=== PATIENT | female | born 1965 | race Asian ===

== ENCOUNTER 2024-08-07 01:53 | Emergency (ER) | payer OTHER, SELFPAY ==
[2024-08-07] VITALS (13 sets, daily range): BP systolic 99–199; BP diastolic 55–103; PULSE 52–71; RESP 16–23; TEMP 36.2; O2SAT 96–99; BMI 294.8
--- NOTE | 2024-08-07 01:54 | EKG_ITS ---
[address] [address] Test Date: 2024-08-07 Pat Name: Dina Pak Department: Located Within [facility] Room: Gender: Female [employer] Field Agent: : 1965 Requested By: Order Number: [id number] Reading MD: Gómez Pool MD Measurements Intervals [place] Rate: 62 P: 48 [place]: 192 QRS: 4 QRSD: 78 T: 49 QT: 454 QTc: 460 Interpretive Statements Normal sinus rhythm Electronically Signed On 08-07-2024 7:31:33 PST by Gómez Pool MD
--- NOTE | 2024-08-07 02:01 | ED.CHESTPAIN ---
HPI - Chest Pain General Chief Complaint: Chest Pain Stated Complaint: chest pain Time Seen by Provider: 08/07/24 01:54 History of Present Illness HPI narrative: 59-year-old female with no reported past medical history presents by private vehicle from home for 1 hour of central substernal chest pain. Patient states that the pain woke her from sleep around 1:00 a.m. and lasted for about 2-3 minutes, resolving without any medications. Patient states that this happened in September of this year while [place] Her has been took her to [place], where she underwent a cardiac workup. Patient states that she was told that she may have an enlarged aorta, but due to difficulties with referrals she was not been able to establish an appointment with a shipping services sales representative until August 25. She has not had any further episodes of chest pain until tonight. Patient states that she was no known family history of coronary disease, however her brother has a history of congenital heart disease requiring several open heart surgeries. Related Data Allergies Allergy/AdvReac Type Severity Reaction Status Date / Time No Known Drug Allergies Allergy Verified 08/07/24 02:00 Patient History Social History Smoking Status: Never smoker Exam Initial Vital Signs Initial Vital Signs: Vital Signs Pulse Rate 61 08/07/24 01:59 Pulse Oximetry 99 08/07/24 01:59 Const: Awake, alert, no acute distress, nontoxic appearing Cardiac: regular rate, regular rhythm RESP: unlabored, clear bilaterally, no wheezing Skin: Warm, Dry, intact, no rashes Neuro: AO x3, CN II-XII grossly intact, moves all extremities Course Orders Ordered: ED Orders 08/07/24 01:54 EKG-12 Lead Stat 08/07/24 02:07 Chest [XR chest 1V] Stat 08/07/24 02:14 BNP [NT-proBNP (BNP-Adult 18+)] Stat CBC Auto Diff [Complete Blood Count AUTO DIFF] Stat CMP [Comprehensive Metabolic Panel] Stat PT [Prothrombin Time INR] Stat Troponin & CK Cardiac Panel Stat 08/07/24 04:02 Trop I [Troponin I] Stat Nitroglycerin (Nitroglycerin 0.4 Mg Sl Tab) 0.4 mg SL [id number] PRN PRN Reason: Chest Pain Last Admin: 08/07/24 02:21 Dose: 0.4 mg Documented By: LS Discontinued Medications Aspirin (Aspirin 81 Mg Chew Tab) 324 mg PO NOW ONE Stop: 08/07/24 02:07 Last Admin: 08/07/24 02:15 Dose: 324 mg Documented By: HNG Vital Signs Vital signs: Vital Signs - 8 hr 08/07/24 01:59 08/07/24 02:00 08/07/24 02:01 Temperature 97.2 F L Pulse Rate 61 60 64 Respiratory Rate 16 Blood Pressure 146/103 H Pulse Oximetry 99 98 98 Oxygen Delivery Method Room Air 08/07/24 02:02 08/07/24 02:02 08/07/24 02:18 Temperature Pulse Rate 57 L 58 L Respiratory Rate 20 20 Blood Pressure 199/83 H Pulse Oximetry 98 98 Oxygen Delivery Method Room Air Room Air 08/07/24 02:19 08/07/24 02:19 08/07/24 02:29 Temperature Pulse Rate 56 L 71 Respiratory Rate 22 20 Blood Pressure 180/77 H Pulse Oximetry 98 96 Oxygen Delivery Method 08/07/24 02:30 08/07/24 02:30 08/07/24 03:00 Temperature Pulse Rate 69 Respiratory Rate 18 Blood Pressure 113/68 118/67 Pulse Oximetry 96 Oxygen Delivery Method 08/07/24 03:00 08/07/24 03:30 08/07/24 03:30 Temperature Pulse Rate 57 L 54 L Respiratory Rate 23 17 Blood Pressure 105/58 L Pulse Oximetry 98 98 Oxygen Delivery Method Room Air 08/07/24 04:00 08/07/24 04:00 Temperature Pulse Rate 55 L Respiratory Rate 17 Blood Pressure 115/61 Pulse Oximetry 98 Oxygen Delivery Method MDM - Chest Pain Differential Diagnosis Differential diagnosis: Likely atypical chest pain, costochondritis and chest pain Lab Data 08/07/24 02:14 08/07/24 02:14 Labs: Lab Results 08/07/24 08/07/24 Range/Units 02:14 04:02 WBC 7.9 (4.5-11.0) X10^3/uL RBC 5.86 H (4.0-5.2) X10^6/uL Hgb 13.0 (12.0-16.0) g/dL Hct 40.4 (36-46) % MCV 68.9 L (80-100) fL MCH 22.1 L (26-34) PG MCHC 32.1 (30-36) % RDW 14.4 (11.6-14.8) % Plt Count 242 (150-400) X10^3/uL Neut % (Auto) 44.9 L (50-75) % Lymph % (Auto) 41.6 H (25-40) % [place] % (Auto) 9.1 (3-14) % Eos % (Auto) 3.7 (2-4) % Baso % (Auto) 0.7 (0-2) % Neut # (Auto) 3500 (3156-2227) /uL Lymph # (Auto) 3300 (2099-6991) /uL [place] # (Auto) 700 (0-900) /uL Eos # (Auto) 300 (0-450) /uL Baso # (Auto) 100 (0-100) /uL RBC Morphology See below Microcytosis 2+ H Stomatocytes 1+ H PT 11.0 (9.4-12.5) SECONDS INR 1.0 (0.9-1.3) Sodium 136 L (137-145) mmol/L Potassium 3.7 (3.4-5.1) mmol/L Chloride 104 (98-107) mmol/L Carbon Dioxide 25 (22-32) mmol/L BUN 15 (7-17) mg/dL Creatinine 0.53 (0.52-1.04) mg/dL Estimated GFR > 60 (>60) mL/min BUN/Creatinine Ratio 28.3 H (6-22) Glucose 118 H (70-100) mg/dL Calcium 9.2 (8.4-10.2) mg/dL Total Bilirubin 0.4 (0.2-1.3) mg/dL AST 39 H (14-36) IU/L ALT 36 H (<35) IU/L Alkaline Phosphatase 89 (38-126) U/L Total Creatine Kinase 150 H (30-135) U/L Troponin I 0.012 < 0.012 (0.01-0.034) ng/mL NT-Pro-B Natriuret Pep 44 (<125) pg/mL Total Protein 7.7 (6.3-8.2) g/dL Albumin 4.2 (3.5-5.0) g/dL Globulin 3.5 (1.7-4.1) g/dL Albumin/Globulin Ratio 1.2 (1.0-2.8) Imaging Data Chest x-ray: Radiologist's Impression: Preliminary impression: No acute cardiopulmonary process ECG Data Interpretation: Normal sinus rhythm at 62 beats per minute. Normal WI. No ST T wave changes, no STEMI MDM Narrative Medical decision making narrative: Well-appearing patient with brief episode of central chest pain. States that pain is now nearly completely gone but may have a slight burning sensation in the center of her chest. No change with nitroglycerin administered in the emergency department. Cardiac workup initiated, we will attempt to get records from from patient's previous visit. Records from Medicine reviewed. Patient appears to have possible atrial enlargement seen on EKG, not aortic enlargement. Due to patient's family history of congenital heart disease a CTA chest, abdomen, and pelvis was ordered that showed an incidental thyroid nodule, but no evidence of aortic dissection or cardiac enlargement. Patient had 2 unremarkable troponins and was subsequently discharged home. Patient troponin negative x2 here. On reassessment she was sleeping in ED bed, has had no recurrence of pain since arrival to the emergency department. Low suspicion for ACS at this time. Patient already has upcoming cardiology appointment in just over 2 weeks. Patient and has been counseled on all lab and imaging findings. She was advised to return to the emergency department for any new or worsening symptoms. Otherwise encouraged to keep her cardiology appointment as scheduled. Heart score 2 based on age/HTN on arrival Discharge Plan Departure Patient Disposition: Home Clinical Impression: Chest pain Instructions: DI for Chest Pain Activity Restrictions/Additional Instructions: Your EKG, blood work, and chest x-ray today were reassuring this is not an ongoing heart attack. I do not know the cause of your chest pain at this time. Make sure that you keep your appointment with Cardiology as scheduled. If anything changes in your symptoms or you notice recurrence of chest pain please come back to the emergency department for repeat evaluation. Stand Alone Forms: Patient Portal/API/Survey, Work Release Note
--- NOTE | 2024-08-07 02:07 | DI.RAD.S_ITS ---
PROCEDURE: XR CHEST 1V INDICATIONS: chest pain TECHNIQUE: One view of the chest was acquired. COMPARISON: None. FINDINGS: Surgical changes and devices: None. Lungs and pleura: Possible mid right lung calcified granuloma. No dense consolidation or pleural effusion. Mediastinum: Normal heart size Bones and chest wall: Degenerative changes IMPRESSION: No acute radiographic abnormality on single view study. Possible nodule in the right mid lung is probably a granuloma. No significant discrepancy from the prelim report Dictated by: Ashish Vázquez M.D. on 08/07/2024 at 7:46 Approved by: Ashish Vázquez M.D. on 08/07/2024 at 7:48
[2024-08-07] MEDS: ASPIRIN 81 MG CHEW TAB 324 MG PO (02:15)
[2024-08-07] MEDS: NITROGLYCERIN 0.4 MG SL TAB SL (02:21)
[2024-08-07 02:26] LABS: Add Manual Diff / Slide Review NO; Basophils Absolute Auto 100 /uL (0-100); Basophils Percent Auto 0.7 % (0-2); Eosinophils Absolute Auto 300 /uL (0-450); Eosinophils Percent Auto 3.7 % (2-4); Hematocrit 40.4 % (36-46); Lymphocytes Absolute Auto 3300 /uL (1100-4500); Lymphocytes Percent Auto 41.6 % (25-40); Mean Corpuscular HGB Conc 32.1 % (30-36); Mean Corpuscular Hemoglobin 22.1 PG (26-34); Mean Corpuscular Volume 68.9 fL (80-100); Monocytes Absolute Auto 700 /uL (0-900); Monocytes Percent Auto 9.1 % (3-14); Neutrophils Absolute Auto 3500 /uL (1500-7000); Neutrophils Percent Auto 44.9 % (50-75); Platelet Count 242 X10^3/uL (150-400); Red Blood Cell Count 5.86 X10^6/uL (4.0-5.2); Red Cell Distribution Width 14.4 % (11.6-14.8); White Blood Cell Count 7.9 X10^3/uL (4.5-11.0)
[2024-08-07 02:36] LABS: Alanine Aminotransferase 36 IU/L (<35); Albumin 4.2 g/dL (3.5-5.0); Albumin Globulin Ratio 1.2 (1.0-2.8); Alkaline Phosphatase 89 U/L (38-126); Aspartate Aminotransferase 39 IU/L (14-36); BUN Creatinine Ratio 28.3 (6-22); Bilirubin Total 0.4 mg/dL (0.2-1.3); Blood Urea Nitrogen 15 mg/dL (7-17); Calcium 9.2 mg/dL (8.4-10.2); Carbon Dioxide 25 mmol/L (22-32); Chloride 104 mmol/L (98-107); Creatine Kinase 150 U/L (30-135); Estimated Glomerular Filt Rate > 60 mL/min (>60); Globulin 3.5 g/dL (1.7-4.1); Glucose 118 mg/dL (70-100); HEMOLYSIS < 15 (0-50); Potassium 3.7 mmol/L (3.4-5.1); Sodium 136 mmol/L (137-145); Total Protein 7.7 g/dL (6.3-8.2)
[2024-08-07 02:43] LABS: Microcytosis 2+; Stomatocytes 1+
[2024-08-07 02:48] LABS: NT-proBNP (BNP-Adult 18+) 44 pg/mL (<125); Troponin I 0.012 ng/mL (0.01-0.034)
--- NOTE | 2024-08-07 04:05 | PC.NURSE ---
Repeat troponin drawn from existing IV line without difficulty. Per Dr. Hector parekh for pt to take po fluids. Water provided as requested. Pt remains connected to cardiac, resp, pulse ox, and blood pressure monitors with alarms on and audible, VSS. XCall light within reach. remains at bedside.
[2024-08-07 04:31] LABS: Troponin I < 0.012 ng/mL (0.01-0.034)
--- NOTE | 2024-08-07 05:20 | PC.NURSE ---
Pt ambulatory to restroom without difficulty or assistance
== END 2024-08-07 05:31 | disposition home or self-care (01) ==
PROVIDERS: Emergency Provider Emergency Medicine
DX: R07.9 Chest pain, unspecified (principal)
CPT/HCPCS: 36415; 71045; 80053; 82550; 83880; 84484; 85025; 85610; 93005; 99283; 99284

== ENCOUNTER → 2024-08-25 10:12 | Outpatient (CLI) | payer OTHER, SELFPAY ==
--- NOTE | 2024-08-25 10:14 | DI.ECHO.S_ITS ---
[facility] : : [address] : : [place] : : [id number] : : Phone: [phone] Echocardiogram Report + + :Name: GONZÁLEZ MILLAN Study Date: 08/25/2024 Height: 60 in : :[facility] ReadingLocation: Weight: 155 lb : : Gender: Female BSA: 1.7 m2 : :: 1965 Age: 59 yrs BP: 157/82 mmHg: :Reason For Study: CARDIOMEGALY : :Ordering Physician: BRITANY MCLAUGHLIN Performed By: Nilsa So : :Referring: BRITANY MCLAUGHLIN : + + Interpretation Summary 1. The left ventricular contractility is normal. Estimated ejection fraction is greater than 60% with no segmental wall motion abnormalities. No LVH. Unable to comment on diastolic function. 2. The right ventricle was not well-visualized. In limited views, the contractility appears to be grossly normal. 3. All cardiac chambers appear to be grossly normal in size. 4. No significant valvular abnormalities. 5. No obvious intracardiac shunts. 6. No obvious intracardiac masses nor thrombi. 7. No hemodynamically significant pericardial effusion. 8. Low right-sided filling pressures. Conclusion: Normal biventricular systolic function with no significant valvular abnormalities. Procedure: A two-dimensional transthoracic echocardiogram with color flow and Doppler was performed. The study quality was technically adequate. There is no prior echocardiogram noted for this patient. The patient was in sinus bradycardia with heart rates between 47-58 bpm during the exam. Left Ventricle: The left ventricle is normal in size and wall thickness. The ejection fraction is estimated to be 60-65%. Right Ventricle: The right ventricle is grossly normal size. The right ventricular systolic function is normal. Atria: The left atrial size is normal. Right atrial size is normal. There is no Doppler evidence for an interatrial shunt. Mitral Valve: The mitral valve leaflets appear mildly thickened, but open well. There is trace mitral regurgitation. Aortic Valve: The aortic valve is trileaflet. The aortic valve opens well. There is no aortic valve stenosis. No aortic regurgitation is present. Tricuspid Valve: The tricuspid valve is normal in structure and function. There is trace tricuspid regurgitation. The right ventricular systolic pressure is estimated to be at least 24 mmHg based on an estimated right atrial pressure of 3 mm Hg. Pulmonic Valve: The pulmonic valve is not well seen, but is grossly normal. There is trace pulmonic regurgitation. Great Vessels: The aortic root is normal size. The dimensions of the ascending aorta are normal. The IVC is of normal diameter and collapses greater than 50% with a sniff. This suggests a low right atrial pressure of 3 mm Hg. Pericardium/ Pleura There is no pericardial effusion. There is no pleural effusion. MMode/2D Measurements & Calculations LVIDd: 4.9 cm LVOT diam: 2.0 cm LVIDs: 3.2 cm Ao root diam: 2.6 cm FS: 36.0 % asc Aorta Diam: 2.9 cm EPSS: 0.56 cm IVSd: 0.75 cm LVPWd: 0.91 cm LV vega. diameter/BSA (cm/m^2): 3.0 LV sys. diameter/BSA (cm/m^2): 1.9 LA A2 area: 15.8 cm2 RA long axis: 5.4 cm LA A4 area: 18.9 cm2 RA area: 14.4 cm2 LA length (vol): 5.0 cm RA vol: 32.6 ml LA vol: 51.2 ml RA : 19.5 ml/m2 LA vol index: 30.6 ml/m2 IVC diam: 1.5 cm TAPSE: 1.7 cm Doppler Measurements & Calculations Ao V2 max: 142.8 cm/sec LVOT Max Ernst: 94.2 cm/sec Ao V2 mean: 98.0 cm/sec LV V1 max P.5 mmHg Ao max P.2 mmHg LV V1 VTI: 21.3 cm Ao mean P.3 mmHg PARDEEP(I,D): 2.1 cm2 Ao V2 VTI: 30.6 cm PARDEEP(V,D): 2.0 cm2 sev ratio: 0.70 PARDEEP indexed to BSA (cm^2/m^2): 1.3 MV E max ernst: 93.1 cm/sec TR max ernst: 230.5 cm/sec MV A max ernst: 90.2 cm/sec TR max P.2 mmHg MV E/A: 1.0 PA V2 max: 89.0 cm/sec Med Peak E' Ernst: 6.5 cm/sec PA V2 mean: 64.9 cm/sec E/E' med: 14.3 PA mean P.9 mmHg Lat Peak E' Ernst: 7.5 cm/sec PA pr(Accel): 36.2 mmHg E/E' lat: 12.5 E/e' average: 13.4 MV dec time: 0.22 sec SV(LVOT): 64.1 ml Reading Physician:
== END ==
PROVIDERS: PCP Nurse Practitioner Family; Referring Provider Internal Medicine; Visit Provider Internal Medicine
DX: I51.7 Cardiomegaly (principal)
CPT/HCPCS: 93306